=== PATIENT | male | born 1975 | race African-American/Black ===

== ENCOUNTER 2017-04-24 13:41 | Emergency (ER) | payer SELFPAY ==
[~2017-04-24 13:41] MED LIST: LIPI40TA PO; PLAV75TA29 PO; PROT40TA PO
[2017-04-24 13:43] VITALS: BP_SYST 146; BP_SYST 6; BP_DIAS 101; PULSE 83; RESP 18; TEMP 98.6; O2SAT 98
[2017-04-24 13:44] VITALS: BP 146/101
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
[2017-04-24] MEDS ORDERED: IBUPROFEN 600 MG TAB PO ONE (15:45)
[2017-04-24] MEDS ORDERED: PROPARACAINE HCL 0.5% OPHT SOLN 15 ML BTL EACH EYE ONE (15:45)
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
== END 2017-04-24 19:02 | disposition home or self-care (01) ==
LOC: NEPD 13:41
DX: R51 Headache (principal); H57.11 Ocular pain, right eye; J45.909 Unspecified asthma, uncomplicated; Z79.02 Long term (current) use of antithrombotics/antiplatelets; Z79.899 Other long term (current) drug therapy; Z88.8 Allergy status to other drugs, medicaments and biological substances
CPT/HCPCS: 70486; 99284

== ENCOUNTER 2017-05-02 21:29 | Emergency (ER) | payer SELFPAY ==
[2017-05-02 21:30] VITALS: BP 157/91; PULSE 79; RESP 16; TEMP 98.9; O2SAT 99
[2017-05-03] MEDS ORDERED: BACL10TA PO (00:49)
[2017-05-03] MEDS ORDERED: TRAM50 PO (00:49)
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
[2017-05-03] MEDS ORDERED: PROMETHAZINE INJ 25 MG/ML VIAL IM ONE (01:00)
[2017-05-03] MEDS ORDERED: KETOROLAC TROMETHAMINE 60 MG/2 ML (IM) VIAL IM ONE (01:00)
[2017-05-03 02:29] VITALS: BP 152/78; PULSE 72; RESP 18; O2SAT 100
== END 2017-05-03 02:30 | disposition home or self-care (01) ==
LOC: NEPD 21:29
DX: R51 Headache (principal); F17.200 Nicotine dependence, unspecified, uncomplicated
CPT/HCPCS: 96372; 99284; J1885; J2550